=== PATIENT | female | born 1975 | race Asian ===

== ENCOUNTER 2018-09-07 09:30 | Inpatient (IN) | payer SELFPAY ==
[2018-09-07 09:58] VITALS: BMI 34.7
--- NOTE | 2018-09-07 11:17 | HP ---
COWS - Scale Resting Pulse: 2= [place] 101-120 Sweatin= Chills/Flushing Restless Observation: 1= Difficult to Sit Still Pupil Size: 1= Pupils >than Normal Bone or Joint Aches: 2= Severe Diffuse Aches Runny Nose/ Eye Tearin= Runny Nose/Eyes GI Upset > 30mins: 2= Nausea/Diarrhea Tremor Observation: 2= Slight Tremor Visible Yawning Observation: 1= 1-2x During Session Anxiety or Irritability: 2=Irritable/Anxious Goose Flesh Skin: 0=Smooth Skin COWS Score: 16 Admission ROS S - HPI Chief Complaint: i need help to to detox from methadone Allergies/Adverse Reactions: Allergies Allergy/AdvReac Type Severity Reaction Status Date / Time No Known Allergies Allergy Verified 09/07/18 10:01 History of Present Illness: this 43 years old female with opiate dependence on methadone program,last medicated this morning 20 mgs, would like to be detox from methadone asthma nicotine dependence for detox - Ebola screening Have you traveled outside of the country in the last 21 days: No Have you had contact with anyone from an Ebola affected area: No Have you been sick,other than usual withdrawal symptoms: No - Review of Systems Constitutional: Chills, Night Sweats, Weakness EENT: reports: Tearing, Nose Congestion Respiratory: reports: No Symptoms reported (asthma) Cardiac: reports: Palpitations GI: reports: Nausea, Vomiting, Abdominal cramping : reports: No Symptoms Reported Musculoskeletal: reports: Back Pain, Joint Pain, Muscle Pain, Joint Stiffness Integumentary: reports: Dryness Neuro: reports: Tremors Endocrine: reports: No Symptoms Reported Hematology: reports: No Symptoms Reported Psychiatric: reports: No Sypmtoms Reported, Judgement Intact, Mood/Affect Appropiate, Orientated x3 Patient History - Patient Medical History Hx Anemia: No Hx Asthma: Yes (on albutero and advair inhaler) Hx Chronic Obstructive Pulmonary Disease (COPD): No Hx Cancer: No Hx Cardiac Disorders: No Hx Congestive Heart Failure: No Hx Hypertension: No Hx Hypercholesterolemia: No Hx Pacemaker: No HX Cerebrovascular Accident: No Hx Seizures: No Hx Diabetes: No Hx Gastrointestinal Disorders: No Hx Liver Disease: No Hx Genitourinary Disorders: No Hx Sexually Transmitted Disorders: No Hx Renal Disease (ESRD): No Hx Thyroid Disease: No Hx Human Immunodeficiency Virus (HIV): No (last 2017 negative) Hx Hepatitis C: No Hx Depression: No Hx Suicide Attempt: No Hx Bipolar Disorder: No Hx Schizophrenia: No Other Medical History: no suicidal,no homicidal - Patient Surgical History Past Surgical History: Yes Hx Neurologic Surgery: No Hx Cataract Extraction: No Hx Cardiac Surgery: No Hx Lung Surgery: No Hx Breast Surgery: No Hx Breast Biopsy: No Hx Abdominal Surgery: Yes (ectopic pregnanacy x2) Hx Appendectomy: No Hx Cholecystectomy: No Hx Genitourinary Surgery: No Hx Section: No Hx Orthopedic Surgery: No Anesthesia Reaction: No - PPD History Previous Implant?: Yes Documented Results: Negative w/o proof Implanted On Prior [facility] Admission?: No PPD to be Administered?: Yes - Reproductive History Patient is a Female of Child Bearing Age (11 -55 yrs old): Yes Last Menstrual Period: 08/22/18 Patient : No - Smoking Cessation Smoking history: Current every day smoker Have you smoked in the past 12 months: Yes Aproximately how many cigarettes per day: 40 Hx Chewing Tobacco Use: No Initiated information on smoking cessation: Yes 'Breaking Loose' booklet given: 09/07/18 - Substance & Tx. History Hx Alcohol Use: No Hx Substance Use: Yes Substance Use Type: Opiates Hx Substance Use Treatment: No - Substances Abused Methadone 20 mg. (maintenance) Route: Oral Frequency: Daily Amount used: 20 mg. Age of first use: 28 Date of Last Use: 09/07/18 Family Disease History - Family Disease History Family History: Denies Admission Physical Exam BHS - Vital Signs Vital Signs: Vital Signs - 24 hr 09/07/18 09:53 Temperature 99 F Pulse Rate 101 H Respiratory 18 Rate Blood Pressure 108/73 - Physical General Appearance: Yes: Moderate Distress, Tremorous, Irritable, Sweating, Anxious HEENTM: Yes: Normal ENT Inspection, GENEVIEVE, Pharynx Normal Respiratory: Yes: Lungs Clear, Normal Breath Sounds, No Respiratory Distress Neck: Yes: Within Normal Limits, Supple, Trachea in good position Breast: Yes: Breast Exam Deferred Cardiology: Yes: Tachycardia Abdominal: Yes: Within Normal Limits, Normal Bowel Sounds, Non Tender, Flat, Soft Genitourinary: Yes: Within Normal Limits Back: Yes: Muscle Spasm Musculoskeletal: Yes: full range of Motion, Back pain, Muscle Pain Extremities: Yes: Tremors Neurological: Yes: stucco plasterer II-XII NML intact, Fully Oriented, Alert, Motor Strength 5/5 Integumentary: Yes: Dry Lymphatic: Yes: Within Normal Limits - Diagnostic (1) Opiate dependence Current Visit: Yes Status: Acute (2) Methadone maintenance therapy patient Current Visit: Yes Status: Acute (3) Asthma Current Visit: Yes Status: Acute (4) Nicotine dependence Current Visit: Yes Status: Acute Cleared for Admission [facility] - Detox or Rehab [facility] Level of Care: Medically Managed Detox Regimen/Protocol: Methadone [facility] Breath Alcohol Content Breath Alcohol Content: 0 Urine Pregancy Test - Result Urine Test Results: Negative- NO Line Present Urine Drug Screen - Results Drug Screen Negative: No Urine Drug Screen Results: JOHNNA-Cocaine, OPI-Opiates, BZO-Benzodiazepines, MTD- Methadone, FEN-Fentanyl
[2018-09-07] MEDS ORDERED: guaiFENesin/D-METHORPHAN HB 10 ML UNIT-DOSE CUPS PO PRN (11:33)
[2018-09-07] MEDS ORDERED: LOPERAMIDE HCL 2 MG CAPSULE PO PRN (11:33)
[2018-09-07] MEDS ORDERED: P-EPHED 60MG/TRIPROLIDI 2.5MG TABLET PO PRN (11:33)
[2018-09-07] MEDS ORDERED: MAG HYDROX/AL HYDROX/SIMETH 30 ML UNIT-DOSE CUP PO PRN (11:33)
[2018-09-07] MEDS ORDERED: MAGNESIUM CITRATE 300 ML BOTTLE PO PRN (11:33)
[2018-09-07] MEDS ORDERED: ACETAMINOPHEN 325 MG TABLET (FP) PO PRN (11:33)
[2018-09-07] MEDS ORDERED: IBUPROFEN 400 MG TABLET (FP) PO PRN (11:33)
[2018-09-07] MEDS ORDERED: MAGNESIUM HYDROX 2400MG/30ML ORAL SUSPENSION 30 ML CUP PO PRN (11:33)
[2018-09-07] MEDS ORDERED: MENTHOL/PHENOL 1 EACH UD MM PRN (11:33)
[2018-09-07] MEDS ORDERED: ALBUTEROL SO4 8 GM HFA INHALER IH PRN (11:37)
[2018-09-07] MEDS ORDERED: METHADONE HCL 10 MG TABLET (FOR DETOX USE ONLY) PO ONE ×2 (12:05→23:00)
[2018-09-07] MEDS: diazePAM 5 MG TABLET PO PRN ×2 (12:39→22:28)
[2018-09-07] MEDS: NICOTINE 21 MG/24 HOURS TOPICAL PATCH TD SCH (12:47)
--- NOTE | 2018-09-07 15:38 | EKG ---
Test Reason : Blood Pressure : / mmHG Vent. Rate : 091 BPM Atrial Rate : 091 BPM P-R Int : 138 ms QRS Dur : 076 ms QT Int : 376 ms P-R-T Axes : 034 061 021 degrees QTc Int : 462 ms NORMAL SINUS RHYTHM NORMAL ECG NO PREVIOUS ECGS AVAILABLE Confirmed by JUSTYN HARO, JOSE ([id number]) on 09/07/2018 3:38:16 PM Referred By: Confirmed By:JOSE ALEJANDRA MD
[2018-09-07 18:29] LABS: URINE APPEARANCE SLCLOUDY; URINE BILIRUBIN NEGATIVE (<2.0 mg/dL); URINE COLOR YELLOW; URINE GLUCOSE (UA) NEGATIVE (NEGATIVE); URINE KETONE NEGATIVE (NEGATIVE); URINE LEUK ESTERASE 3+ (NEGATIVE); URINE NITRITE NEGATIVE (NEGATIVE); URINE PROTEIN NEGATIVE (NEGATIVE); URINE UROBILINOGEN NEGATIVE mg/dL (0.2-1.0)
[2018-09-07 19:10] LABS: EPI CELLS FEW /HPF (FEW); URINE HYALINE CAST 2 /lpf; URINE MUCUS RARE
[2018-09-07] MEDS: THIAMINE HCL 100 MG TABLET (FP) PO SCH (22:27)
[2018-09-07] MEDS: hydrOXYzine PAMOATE 50 MG CAPSULE (FP) PO PRN (22:28)
[2018-09-07] MEDS: MELATONIN 5 MG TABLETS PO PRN (22:29)
[2018-09-07] MEDS: BUDESONIDE/FORMETEROL FUMARATE 160/4.5 mcg INHALER IH SCH (22:32)
[2018-09-08] MEDS: diazePAM 5 MG TABLET PO PRN ×3 (06:43→22:12)
[2018-09-08] MEDS ORDERED: METHADONE HCL 10 MG TABLET (FOR DETOX USE ONLY) PO ONE (10:00)
[2018-09-08] MEDS: PRENATAL VITAMINS W/ FOLIC ACID TABLET (FP) PO SCH (10:04)
[2018-09-08] MEDS: NICOTINE 21 MG/24 HOURS TOPICAL PATCH TD SCH (10:05)
[2018-09-08] MEDS: BUDESONIDE/FORMETEROL FUMARATE 160/4.5 mcg INHALER IH SCH ×2 (10:05→22:11)
[2018-09-08 10:22] LABS: HEMATOCRIT 47.4 % (32.4-45.2); HEMOGLOBIN 15.2 GM/dL (10.7-15.3); MCH 30.7 pg (25.7-33.7); MCHC 32.2 g/dl (32.0-36.0); MEAN CELL VOLUME 95.6 fl (80-96); MEAN PLT VOLUME 7.4 fl (7.5-11.1); PLATELET COUNT 299 K/MM3 (134-434); RBC 4.96 M/mm3 (3.60-5.2); RDW 12.9 % (11.6-15.6); WHITE BLOOD COUNT 7.7 K/mm3 (4.0-10.0)
[2018-09-08 10:38] LABS: ALBUMIN 3.9 g/dl (3.4-5.0); ALK PHOS 96 U/L (45-117); ANION GAP 8 MMOL/L (8-16); BILIRUBIN,TOTAL 0.4 mg/dL (0.2-1); BLOOD UREA NITROGEN 8 mg/dL (7-18); CALCIUM 8.8 mg/dL (8.5-10.1); CHLORIDE 102 mmol/L (98-107); CO2 29 mmol/L (21-32); CREATININE 0.7 mg/dL (0.55-1.3); GLUCOSE,RANDOM 103 mg/dL (74-106); POTASSIUM 4.5 mmol/L (3.5-5.1); SGOT/AST 48 U/L (15-37); SGPT/ALT 51 U/L (13-61); SODIUM 139 mmol/L (136-145); TOT PROT 7.7 g/dl (6.4-8.2)
--- NOTE | 2018-09-08 11:06 | PN ---
[facility] COWS - Scale Resting Pulse: 1= [place] 81-100 Sweatin=Flushed/Facial Moisture Restless Observation: 1= Difficult to Sit Still Pupil Size: 0= Normal to Room Light Bone or Joint Aches: 2= Severe Diffuse Aches Runny Nose/ Eye Tearin= Runny Nose/Eyes GI Upset > 30mins: 0= None Tremor Observation of Outstretched Hands: 2= Slight Tremor Visible Yawning Observation: 1= 1-2x During Session Anxiety or Irritability: 2=Irritable/Anxious Goose Flesh Skin: 0=Smooth Skin COWS Score: 13 BHS Progress Note (SOAP) Subjective: back pain sweats shakes nasal congestion anxiety interrupted sleep Objective: 09/08/18 11:05 Vital Signs Temperature 97.3 F L 09/08/18 09:07 Pulse Rate 82 09/08/18 09:07 Respiratory Rate 17 09/08/18 09:07 Blood Pressure 110/62 09/08/18 09:07 O2 Sat by Pulse Oximetry (%) Laboratory Tests 09/07/18 09/08/18 09/08/18 14:40 06:00 06:00 WBC 7.7 RBC 4.96 Hgb 15.2 Hct 47.4 H MCV 95.6 MCH 30.7 MCHC 32.2 RDW 12.9 Plt Count 299 MPV 7.4 L Sodium 139 Potassium 4.5 Chloride 102 Carbon Dioxide 29 Anion Gap 8 BUN 8 Creatinine 0.7 Creat Clearance w eGFR > 60 Random Glucose 103 Calcium 8.8 Total Bilirubin 0.4 AST 48 H ALT 51 Alkaline Phosphatase 96 Total Protein 7.7 Albumin 3.9 Urine Color Yellow Urine Appearance Slcloudy Urine pH 5.0 Ur Specific [place] 1.024 Urine Protein Negative Urine Glucose (UA) Negative Urine Ketones Negative Urine Blood Negative Urine Nitrite Negative Urine Bilirubin Negative Urine Urobilinogen Negative Ur Leukocyte Esterase 3+ H Urine WBC (Auto) 1 Urine RBC (Auto) 5 Ur Epithelial Cells Few Hyaline Casts 2 Urine Mucus Rare aaox3 ambulating no acute distress Assessment: 09/08/18 11:06 withdrawal sx Plan: continue detox increase fluids motrin/tylenol prn
[2018-09-08] MEDS: THIAMINE HCL 100 MG TABLET (FP) PO SCH (22:11)
[2018-09-08] MEDS: MELATONIN 5 MG TABLETS PO PRN (22:11)
[2018-09-08] MEDS: NICOTINE POLACRILEX 2 MG GUM BUC PRN (22:12)
[2018-09-09] MEDS: diazePAM 5 MG TABLET PO PRN ×4 (03:12→22:23)
[2018-09-09] MEDS ORDERED: METHADONE HCL 5 MG TABLET (FOR DETOX USE ONLY) PO ONE (10:00)
--- NOTE | 2018-09-09 10:03 | PN ---
S COWS - Scale Resting Pulse: 1= [place] 81-100 Sweatin=Flushed/Facial Moisture Restless Observation: 1= Difficult to Sit Still Pupil Size: 0= Normal to Room Light Bone or Joint Aches: 2= Severe Diffuse Aches Runny Nose/ Eye Tearin= None GI Upset > 30mins: 0= None Tremor Observation of Outstretched Hands: 2= Slight Tremor Visible Yawning Observation: 1= 1-2x During Session Anxiety or Irritability: 2=Irritable/Anxious Goose Flesh Skin: 0=Smooth Skin COWS Score: 11 [facility] Progress Note (SOAP) Subjective: low back pain sweats anxiety irritable interrupted sleep Objective: 09/09/18 10:02 Vital Signs Temperature 95.9 F L 09/09/18 09:24 Pulse Rate 82 09/09/18 09:24 Respiratory Rate 16 09/09/18 09:24 Blood Pressure 111/77 09/09/18 09:24 O2 Sat by Pulse Oximetry (%) Laboratory Tests 09/07/18 09/08/18 09/08/18 14:40 06:00 06:00 WBC 7.7 RBC 4.96 Hgb 15.2 Hct 47.4 H MCV 95.6 MCH 30.7 MCHC 32.2 RDW 12.9 Plt Count 299 MPV 7.4 L Sodium 139 Potassium 4.5 Chloride 102 Carbon Dioxide 29 Anion Gap 8 BUN 8 Creatinine 0.7 Creat Clearance w eGFR > 60 Random Glucose 103 Calcium 8.8 Total Bilirubin 0.4 AST 48 H ALT 51 Alkaline Phosphatase 96 Total Protein 7.7 Albumin 3.9 Urine Color Yellow Urine Appearance Slcloudy Urine pH 5.0 Ur Specific [place] 1.024 Urine Protein Negative Urine Glucose (UA) Negative Urine Ketones Negative Urine Blood Negative Urine Nitrite Negative Urine Bilirubin Negative Urine Urobilinogen Negative Ur Leukocyte Esterase 3+ H Urine WBC (Auto) 1 Urine RBC (Auto) 5 Ur Epithelial Cells Few Hyaline Casts 2 Urine Mucus Rare RPR Titer 09/08/18 06:00 WBC RBC Hgb Hct MCV MCH MCHC RDW Plt Count MPV Sodium Potassium Chloride Carbon Dioxide Anion Gap BUN Creatinine Creat Clearance w eGFR Random Glucose Calcium Total Bilirubin AST ALT Alkaline Phosphatase Total Protein Albumin Urine Color Urine Appearance Urine pH Ur Specific [place] Urine Protein Urine Glucose (UA) Urine Ketones Urine Blood Urine Nitrite Urine Bilirubin Urine Urobilinogen Ur Leukocyte Esterase Urine WBC (Auto) Urine RBC (Auto) Ur Epithelial Cells Hyaline Casts Urine Mucus RPR Titer Nonreactive aaox3 ambulating no acute distress Assessment: 09/09/18 10:02 withdrawal sx Plan: continue detox increase fluids flexiril 10mg prn lidocaine patch motrin 600mg prn
[2018-09-09] MEDS: BUDESONIDE/FORMETEROL FUMARATE 160/4.5 mcg INHALER IH SCH ×2 (10:19→22:23)
[2018-09-09] MEDS: LIDOCAINE 5% TOPICAL PATCH TP SCH (10:20)
[2018-09-09] MEDS: PRENATAL VITAMINS W/ FOLIC ACID TABLET (FP) PO SCH (10:20)
[2018-09-09] MEDS: NICOTINE 21 MG/24 HOURS TOPICAL PATCH TD SCH (10:20)
[2018-09-09] MEDS: NICOTINE POLACRILEX 2 MG GUM BUC PRN (19:21)
[2018-09-09] MEDS: THIAMINE HCL 100 MG TABLET (FP) PO SCH (22:22)
[2018-09-09] MEDS: LIDOCAINE PATCH REMOVAL MC SCH (22:23)
[2018-09-09] MEDS: CYCLOBENZAPRINE HCL 10 MG TABLET (FP) PO PRN (22:23)
[2018-09-09] MEDS: hydrOXYzine PAMOATE 50 MG CAPSULE (FP) PO PRN (22:23)
[2018-09-09] MEDS: MELATONIN 5 MG TABLETS PO PRN (22:23)
[2018-09-09] MEDS: IBUPROFEN 600 MG TABLET (FP) PO PRN (22:23)
[2018-09-10] MEDS ORDERED: METHADONE HCL 5 MG TABLET (FOR DETOX USE ONLY) PO ONE (10:00)
[2018-09-10] MEDS: NICOTINE 21 MG/24 HOURS TOPICAL PATCH TD SCH (10:08)
[2018-09-10] MEDS: BUDESONIDE/FORMETEROL FUMARATE 160/4.5 mcg INHALER IH SCH ×2 (10:08→22:24)
[2018-09-10] MEDS: LIDOCAINE 5% TOPICAL PATCH TP SCH (10:09)
[2018-09-10] MEDS: PRENATAL VITAMINS W/ FOLIC ACID TABLET (FP) PO SCH (10:09)
--- NOTE | 2018-09-10 12:54 | PN ---
[facility] Progress Note Note: PATIENT CONTINUES WITH DETOX REGIMEN. STATES SHE FEELS BETTER. Vital Signs Temperature 98.4 F 09/10/18 09:43 Pulse Rate 73 09/10/18 09:43 Respiratory Rate 18 09/10/18 09:43 Blood Pressure 99/63 09/10/18 09:43 O2 Sat by Pulse Oximetry (%) Laboratory Tests 09/07/18 09/08/18 09/08/18 14:40 06:00 06:00 WBC 7.7 RBC 4.96 Hgb 15.2 Hct 47.4 H MCV 95.6 MCH 30.7 MCHC 32.2 RDW 12.9 Plt Count 299 MPV 7.4 L Sodium 139 Potassium 4.5 Chloride 102 Carbon Dioxide 29 Anion Gap 8 BUN 8 Creatinine 0.7 Creat Clearance w eGFR > 60 Random Glucose 103 Calcium 8.8 Total Bilirubin 0.4 AST 48 H ALT 51 Alkaline Phosphatase 96 Total Protein 7.7 Albumin 3.9 Urine Color Yellow Urine Appearance Slcloudy Urine pH 5.0 Ur Specific [place] 1.024 Urine Protein Negative Urine Glucose (UA) Negative Urine Ketones Negative Urine Blood Negative Urine Nitrite Negative Urine Bilirubin Negative Urine Urobilinogen Negative Ur Leukocyte Esterase 3+ H Urine WBC (Auto) 1 Urine RBC (Auto) 5 Ur Epithelial Cells Few Hyaline Casts 2 Urine Mucus Rare RPR Titer 09/08/18 06:00 WBC RBC Hgb Hct MCV MCH MCHC RDW Plt Count MPV Sodium Potassium Chloride Carbon Dioxide Anion Gap BUN Creatinine Creat Clearance w eGFR Random Glucose Calcium Total Bilirubin AST ALT Alkaline Phosphatase Total Protein Albumin Urine Color Urine Appearance Urine pH Ur Specific [place] Urine Protein Urine Glucose (UA) Urine Ketones Urine Blood Urine Nitrite Urine Bilirubin Urine Urobilinogen Ur Leukocyte Esterase Urine WBC (Auto) Urine RBC (Auto) Ur Epithelial Cells Hyaline Casts Urine Mucus RPR Titer Nonreactive PE: ALERT AND ORIENTED X 3 SKIN WARM AND DRY AMB AD MALDONADO EXT FULL ROM CALM, PLEASANT MOOD A/P WITHDRAWAL SX CONTINUE DETOX ORDERED ENCOURAGE ORAL FLUIDS CONTINUE TO MONITOR
[2018-09-10] MEDS: NICOTINE POLACRILEX 2 MG GUM BUC PRN (13:19)
[2018-09-10] MEDS: CYCLOBENZAPRINE HCL 10 MG TABLET (FP) PO PRN (14:35)
[2018-09-10] MEDS: LIDOCAINE PATCH REMOVAL MC SCH (22:24)
[2018-09-10] MEDS: THIAMINE HCL 100 MG TABLET (FP) PO SCH (22:24)
[2018-09-10] MEDS: MELATONIN 5 MG TABLETS PO PRN (22:25)
[2018-09-11] MEDS: IBUPROFEN 600 MG TABLET (FP) PO PRN (04:00)
[2018-09-11] MEDS: CYCLOBENZAPRINE HCL 10 MG TABLET (FP) PO PRN (04:00)
[2018-09-11] MEDS ORDERED: METHADONE HCL 5 MG TABLET (FOR DETOX USE ONLY) PO ONE (06:00)
[2018-09-11 06:10] VITALS: BP 123/73; PULSE 76; TEMP 97.7
[2018-09-11] MEDS ORDERED: METHADONE HCL 10 MG TABLET (FOR DETOX USE ONLY) PO ONE (10:00)
--- NOTE | 2018-09-11 12:24 | DS ---
[facility] Detox Discharge Summary Admission Date: 09/07/18 Discharge Date: 09/11/18 - History Present History: Opioid Dependence Additional Comments: 43 years old female admitted on 09/07/18 for opiate withdrawal sx completed opiate detox regimen tolerated well denies opiate withdrawal sx alert oriented x 3 no acute distress aftercare [facility] Pertinent Past History: patient was on methadone maintenanence program at 20 mg po daily successfully detox off from methadone aftercare [facility] - Physical Exam Results Vital Signs: Vital Signs Temperature 97.7 F 09/11/18 06:00 Pulse Rate 76 09/11/18 06:00 Respiratory Rate 18 09/11/18 06:00 Blood Pressure 123/73 09/11/18 06:00 O2 Sat by Pulse Oximetry (%) Pertinent Admission Physical Exam Findings: opiate withdrawal sx Vital Signs Temperature 97.7 F 09/11/18 06:00 Pulse Rate 76 09/11/18 06:00 Respiratory Rate 18 09/11/18 06:00 Blood Pressure 123/73 09/11/18 06:00 O2 Sat by Pulse Oximetry (%) Laboratory Last Values WBC 7.7 K/mm3 (4.0-10.0) 09/08/18 06:00 RBC 4.96 M/mm3 (3.60-5.2) 09/08/18 06:00 Hgb 15.2 GM/dL (10.7-15.3) 09/08/18 06:00 Hct 47.4 % (32.4-45.2) H 09/08/18 06:00 MCV 95.6 fl (80-96) 09/08/18 06:00 MCH 30.7 pg (25.7-33.7) 09/08/18 06:00 MCHC 32.2 g/dl (32.0-36.0) 09/08/18 06:00 RDW 12.9 % (11.6-15.6) 09/08/18 06:00 Plt Count 299 K/MM3 (134-434) 09/08/18 06:00 MPV 7.4 fl (7.5-11.1) L 09/08/18 06:00 Sodium 139 mmol/L (136-145) 09/08/18 06:00 Potassium 4.5 mmol/L (3.5-5.1) 09/08/18 06:00 Chloride 102 mmol/L (98-107) 09/08/18 06:00 Carbon Dioxide 29 mmol/L (21-32) 09/08/18 06:00 Anion Gap 8 MMOL/L (8-16) 09/08/18 06:00 BUN 8 mg/dL (7-18) 09/08/18 06:00 Creatinine 0.7 mg/dL (0.55-1.3) 09/08/18 06:00 Creat Clearance w eGFR > 60 (>60) 09/08/18 06:00 Random Glucose 103 mg/dL (74-106) 09/08/18 06:00 Calcium 8.8 mg/dL (8.5-10.1) 09/08/18 06:00 Total Bilirubin 0.4 mg/dL (0.2-1) 09/08/18 06:00 AST 48 U/L (15-37) H 09/08/18 06:00 ALT 51 U/L (13-61) 09/08/18 06:00 Alkaline Phosphatase 96 U/L (45-117) 09/08/18 06:00 Total Protein 7.7 g/dl (6.4-8.2) 09/08/18 06:00 Albumin 3.9 g/dl (3.4-5.0) 09/08/18 06:00 Urine Color Yellow 09/07/18 14:40 Urine Appearance Slcloudy 09/07/18 14:40 Urine pH 5.0 (5.0-8.0) 09/07/18 14:40 Ur Specific [place] 1.024 (1.010-1.035) 09/07/18 14:40 Urine Protein Negative (NEGATIVE) 09/07/18 14:40 Urine Glucose (UA) Negative (NEGATIVE) 09/07/18 14:40 Urine Ketones Negative (NEGATIVE) 09/07/18 14:40 Urine Blood Negative (NEGATIVE) 09/07/18 14:40 Urine Nitrite Negative (NEGATIVE) 09/07/18 14:40 Urine Bilirubin Negative (<2.0 mg/dL) 09/07/18 14:40 Urine Urobilinogen Negative mg/dL (0.2-1.0) 09/07/18 14:40 Ur Leukocyte Esterase 3+ (NEGATIVE) H 09/07/18 14:40 Urine WBC (Auto) 1 /hpf (3-5) 09/07/18 14:40 Urine RBC (Auto) 5 /hpf (0-3) 09/07/18 14:40 Ur Epithelial Cells Few /HPF (FEW) 09/07/18 14:40 Hyaline Casts 2 /lpf 09/07/18 14:40 Urine Mucus Rare 09/07/18 14:40 RPR Titer Nonreactive (NONREACTIVE) 09/08/18 06:00 lab noted - Treatment Hospital Course: Detox Protocol Followed, Detoxed Safely, Responded well, Discharged Condition Good, Rehab Referral Accepted Patient has Accepted a Rehab Referral to: [facility] - Medication Discharge Medications: Ambulatory Orders Albuterol Sulfate Inhaler - [Ventolin HFA Inhaler -] 2 inh PO Q4H PRN #1 inhaler 09/10/18 Budesonide/Formeterol Fumarate [SYMBICORT 160/4.5mcg -] 1 inh PO BID #1 inhaler 09/10/18 - Diagnosis (1) Methadone use disorder, moderate, in controlled environment Status: Acute (2) Asthma Status: Chronic Qualifiers: Asthma severity: mild Asthma persistence: intermittent (3) Nicotine dependence Status: Acute Qualifiers: Nicotine product type: cigarettes Substance use status: in withdrawal Qualified Code(s): F17.213 - Nicotine dependence, cigarettes, with withdrawal - AMA Did Patient Leave Against Medical Advice: No
[2018-09-12] MEDS ORDERED: METHADONE HCL 5 MG TABLET (FOR DETOX USE ONLY) PO ONE (06:00)
== END 2018-09-11 08:30 | disposition home or self-care (01) | DRG 773 ==
LOC: YASAS 09:30 → Y6N 11:45
PROC: HZ2ZZZZ Detoxification Services for Substance Abuse Treatment (ICD-10-PCS; principal; 2018-09-07)
DX: F11.20 Opioid dependence, uncomplicated (principal); F17.213 Nicotine dependence, cigarettes, with withdrawal; J45.20 Mild intermittent asthma, uncomplicated
CPT/HCPCS: 36415; 80053; 81003; 81015; 85027; 86593; 93005; 93010